=== PATIENT | female | born 1955 | race Caucasian/White ===

== ENCOUNTER 2018-10-28 21:33 | Inpatient (IN) ==
[2018-10-28] MEDS ORDERED: LOPERAMIDE 2 MG CAPSULE PO STA (22:13)
[2018-10-28] MEDS ORDERED: SODIUM CHLORIDE 0.9% 1,000 ML IV STA ×2 (22:13→23:28)
[2018-10-28 22:25] LABS: Basophils # 0.1 10*3/uL (0.0-0.2); Basophils % 0.5 % (0.0-0.8); Hematocrit 42.5 VOL% (35.7-47.0); Hemoglobin 13.8 GM/DL (12.0-16.0); Immature Granulocytes % 0.8 %; Immature Granulocytes Absolute 0.09 #; Lymphocytes % 8.7 % (21.3-54.2); Mean Corpuscular HGB Conc 32.5 GM/DL (32-36); Mean Corpuscular Volume 86.9 FL (87-102); Mean Platelet Volume 10.8 FL (9.6-12.0); Platelet Count 195 T/CUMM (130-400); Red Blood Count 4.89 MC/CUMM (3.8-5.5); Red Cell Distribution Width 14.4 % (9.3-17.3)
[2018-10-28 22:48] LABS: Albumin 3.2 G/DL (3.4-5.0); Bilirubin,Total 0.4 MG/DL (0.2-1.0); Calcium 7.9 MG/DL (8.5-10.1); Total Protein 6.7 G/DL (6.4-8.3)
[2018-10-28] MEDS ORDERED: ONDANSETRON 4 MG/2 ML VIAL IV STA (23:30)
[2018-10-29] MEDS ORDERED: ONDANSETRON 4 MG/2 ML VIAL IV PRN (06:20)
[2018-10-29] MEDS ORDERED: POTASSIUM CHLORIDE RIDER 10 MEQ in PREMIX 1 EACH IV PRN (06:20)
[2018-10-29] MEDS ORDERED: MAGNESIUM SULF RIDER 4 GM in PREMIX 1 EACH IV PRN (06:20)
[2018-10-29] MEDS ORDERED: PROMETHAZINE 25 MG/1 ML VIAL IM PRN (06:20)
[2018-10-29] MEDS ORDERED: NITROGLYCERIN SL 0.4 MG TABLET SL PRN (06:20)
[2018-10-29] MEDS ORDERED: MAGNESIUM SULF RIDER 2 GM in PREMIX 1 EACH IV PRN (06:20)
[2018-10-29] MEDS: SODIUM CHLORIDE 0.9% 1,000 ML IV SCH (08:04)
[2018-10-29] MEDS: ACETAMINOPHEN 325 MG TABLET PO PRN ×3 (08:05→20:05)
[2018-10-29] MEDS ORDERED: METOPROLOL SUCCINATE XL 50 MG TABLET PO SCH (09:00)
[2018-10-29] MEDS ORDERED: amLODIPine 5 MG TABLET PO SCH (09:00)
[2018-10-29] MEDS ORDERED: ENALAPRIL 20 MG TABLET PO SCH (09:00)
[2018-10-29] MEDS: ENOXAPARIN 40 MG/0.4 ML SYRINGE SUBCUT SCH (09:19)
[2018-10-29] MEDS: PANTOPRAZOLE 40 MG TABLET PO SCH (09:19)
[2018-10-29] MEDS: SIMVASTATIN 20 MG TABLET PO SCH (09:19)
[2018-10-29] MEDS ORDERED: MAGNESIUM SULF RIDER 2 GM in PREMIX 1 EACH IV ONE ×2 (09:26→14:32)
[2018-10-29] MEDS ORDERED: POTASSIUM CHLORIDE 20 MEQ TABLET PO ONE (09:26)
[2018-10-29] MEDS ORDERED: POTASSIUM CHLORIDE 20 MEQ/15 ML UDCUP PO ONE (14:32)
[2018-10-29] MEDS ORDERED: SODIUM CHLORIDE 0.9% 500 ML IV ONE ×2 (15:42→15:54)
[2018-10-29] MEDS ORDERED: NOREPINEPHRINE 8 MG in SODIUM CHLORIDE 0.9% 242 ML IV PRN (17:55)
[2018-10-29] MEDS ORDERED: VANCOMYCIN INJ 1,000 MG in SODIUM CHLORIDE 0.9% 250 ML IV ONE (17:57)
[2018-10-29] MEDS: MEROPENEM 500 MG in SODIUM CHLORIDE 0.9% 100 ML IV SCH (20:10)
[2018-10-29 21:56] LABS: Apearance,Urine CLEAR (Clear); Bilirubin,Urine Negative (Negative); Blood, Urine Small mg/dL (Negative); Glucose,Urine (UA) Negative (Negative); Hyaline Casts,Urine 26 /LPF (0-3); Ketones,Urine Negative (Negative); Mucus,Urine Occasional /LPF (Occasional); Nitrite,Urine Negative (Negative); Protein,Urine Negative; RBC,Urine 1 /HPF (0-4); Squamous Epithelial Cell,Urine Occasional /HPF (0-10); Urine Color Yellow (Yellow); Urine Urobilinogen < 2.0 EU/DL (0.2-1.0); WBC,Urine 1 /HPF (0-6)
[2018-10-30] MEDS: SODIUM CHLORIDE 0.9% 1,000 ML IV SCH ×4 (00:53→21:28)
[2018-10-30] MEDS: ACETAMINOPHEN 325 MG TABLET PO PRN ×3 (02:03→21:16)
[2018-10-30 04:10] LABS: Basophils % 0.5 % (0.0-0.8); Eosinophils # 0.1 10*3/uL (0.0-0.87); Eosinophils % 0.8 % (0.00-10.9); Hematocrit 38.5 VOL% (35.7-47.0); Hemoglobin 12.4 GM/DL (12.0-16.0); Immature Granulocytes % 0.5 %; Immature Granulocytes Absolute 0.03 #; Lymphocytes % 16.6 % (21.3-54.2); Mean Corpuscular HGB Conc 32.2 GM/DL (32-36); Mean Corpuscular Volume 85.9 FL (87-102); Mean Platelet Volume 10.8 FL (9.6-12.0); Neutrophils % 70.6 % (38.7-73.9); Platelet Count 163 T/CUMM (130-400); Red Blood Count 4.48 MC/CUMM (3.8-5.5); Red Cell Distribution Width 14.6 % (9.3-17.3); White Blood Count 6.2 T/CUMM (4-12)
[2018-10-30 04:31] LABS: Osmolality,Calculated 276.5 MOS/KG (273-304)
[2018-10-30] MEDS: POTASSIUM CHLORIDE 20 MEQ TABLET PO PRN ×5 (05:08→21:14)
[2018-10-30] MEDS: PANTOPRAZOLE 40 MG TABLET PO SCH (08:57)
[2018-10-30] MEDS: SIMVASTATIN 20 MG TABLET PO SCH (08:57)
[2018-10-30] MEDS: ENOXAPARIN 40 MG/0.4 ML SYRINGE SUBCUT SCH (08:58)
[2018-10-30] MEDS: MEROPENEM 500 MG in SODIUM CHLORIDE 0.9% 100 ML IV SCH ×2 (08:58→21:13)
[2018-10-30] MEDS ORDERED: POTASSIUM CHLORIDE 10 MEQ TABLET PO ONE (13:58)
[2018-10-30] MEDS: FUROSEMIDE 40 MG/4 ML VIAL IV SCH (15:41)
[2018-10-31] MEDS: ACETAMINOPHEN 325 MG TABLET PO PRN (03:21)
[2018-10-31 05:52] LABS: Basophils % 0.7 % (0.0-0.8); Eosinophils # 0.2 10*3/uL (0.0-0.87); Eosinophils % 5.1 % (0.00-10.9); Hematocrit 38.3 VOL% (35.7-47.0); Hemoglobin 12.3 GM/DL (12.0-16.0); Immature Granulocytes % 0.9 %; Immature Granulocytes Absolute 0.04 #; Lymphocytes # 1.2 10*3/uL (1.4-4.0); Lymphocytes % 27.3 % (21.3-54.2); Mean Corpuscular HGB Conc 32.1 GM/DL (32-36); Mean Platelet Volume 10.8 FL (9.6-12.0); Platelet Count 176 T/CUMM (130-400); Red Cell Distribution Width 14.4 % (9.3-17.3); White Blood Count 4.5 T/CUMM (4-12)
[2018-10-31 06:04] LABS: Calcium 8.2 MG/DL (8.5-10.1)
[2018-10-31 06:05] LABS: Osmolality,Calculated 280.1 MOS/KG (273-304)
[2018-10-31] MEDS: MEROPENEM 500 MG in SODIUM CHLORIDE 0.9% 100 ML IV SCH (09:26)
[2018-10-31] MEDS: PANTOPRAZOLE 40 MG TABLET PO SCH (09:27)
[2018-10-31] MEDS: POTASSIUM CHLORIDE 20 MEQ/15 ML UDCUP PO SCH (09:27)
[2018-10-31] MEDS: FUROSEMIDE 40 MG/4 ML VIAL IV SCH (09:27)
[2018-10-31] MEDS: SODIUM CHLORIDE 0.9% 1,000 ML IV SCH ×2 (09:27→22:15)
[2018-10-31] MEDS: SIMVASTATIN 20 MG TABLET PO SCH (09:27)
[2018-10-31] MEDS: ENOXAPARIN 40 MG/0.4 ML SYRINGE SUBCUT SCH (09:27)
[2018-10-31] MEDS: CIPROFLOXACIN INJ 400 MG in PREMIX 1 EACH IV SCH (12:03)
[2018-11-01] MEDS: CIPROFLOXACIN INJ 400 MG in PREMIX 1 EACH IV SCH ×3 (00:11→23:50)
[2018-11-01] MEDS: ACETAMINOPHEN 325 MG TABLET PO PRN (00:11)
[2018-11-01 05:48] LABS: Basophils % 0.7 % (0.0-0.8); Eosinophils # 0.4 10*3/uL (0.0-0.87); Eosinophils % 8.4 % (0.00-10.9); Hematocrit 37.7 VOL% (35.7-47.0); Hemoglobin 12.3 GM/DL (12.0-16.0); Immature Granulocytes % 0.7 %; Immature Granulocytes Absolute 0.03 #; Lymphocytes # 1.5 10*3/uL (1.4-4.0); Lymphocytes % 34.4 % (21.3-54.2); Mean Corpuscular HGB Conc 32.6 GM/DL (32-36); Mean Corpuscular Volume 85.1 FL (87-102); Mean Platelet Volume 10.5 FL (9.6-12.0); Monocytes % 10.6 % (1.7-12.7); Neutrophils % 45.2 % (38.7-73.9); Platelet Count 196 T/CUMM (130-400); Red Blood Count 4.43 MC/CUMM (3.8-5.5); Red Cell Distribution Width 14.4 % (9.3-17.3); White Blood Count 4.4 T/CUMM (4-12)
[2018-11-01 06:06] LABS: Calcium 8.5 MG/DL (8.5-10.1); Osmolality,Calculated 284.7 MOS/KG (273-304)
[2018-11-01] MEDS ORDERED: FUROSEMIDE 40 MG/4 ML VIAL IV SCH (09:00)
[2018-11-01] MEDS: ENOXAPARIN 40 MG/0.4 ML SYRINGE SUBCUT SCH (09:06)
[2018-11-01] MEDS: PANTOPRAZOLE 40 MG TABLET PO SCH (09:07)
[2018-11-01] MEDS: POTASSIUM CHLORIDE 20 MEQ TABLET PO PRN (09:08)
[2018-11-01] MEDS: SIMVASTATIN 20 MG TABLET PO SCH (09:09)
[2018-11-01] MEDS: POTASSIUM CHLORIDE 20 MEQ/15 ML UDCUP PER TUBE PRN ×4 (09:19→23:47)
[2018-11-01] MEDS: POTASSIUM CHLORIDE 20 MEQ/15 ML UDCUP PO SCH (09:19)
[2018-11-01] MEDS ORDERED: POTASSIUM CHLORIDE 20 MEQ TABLET PO ONE (11:31)
[2018-11-01] MEDS ORDERED: MAGNESIUM SULF RIDER 2 GM in PREMIX 1 EACH IV ONE (11:32)
[2018-11-01] MEDS: SODIUM CHLORIDE 0.9% 1,000 ML IV SCH ×2 (15:20→23:48)
[2018-11-01] MEDS: MAGNESIUM CHLORIDE 64 MG TABLET PO SCH (20:53)
[2018-11-02] MEDS: POTASSIUM CHLORIDE 20 MEQ/15 ML UDCUP PER TUBE PRN (02:13)
[2018-11-02] MEDS: ACETAMINOPHEN 325 MG TABLET PO PRN ×2 (03:24→15:16)
[2018-11-02 05:29] LABS: Basophils % 0.8 % (0.0-0.8); Eosinophils # 0.3 10*3/uL (0.0-0.87); Eosinophils % 6.4 % (0.00-10.9); Hematocrit 38.1 VOL% (35.7-47.0); Hemoglobin 12.3 GM/DL (12.0-16.0); Immature Granulocytes % 1.7 %; Immature Granulocytes Absolute 0.09 #; Lymphocytes # 1.8 10*3/uL (1.4-4.0); Lymphocytes % 33.1 % (21.3-54.2); Mean Corpuscular HGB Conc 32.3 GM/DL (32-36); Mean Corpuscular Volume 85.2 FL (87-102); Mean Platelet Volume 10.5 FL (9.6-12.0); Monocytes % 12.1 % (1.7-12.7); Neutrophils % 45.9 % (38.7-73.9); Platelet Count 226 T/CUMM (130-400); Red Blood Count 4.47 MC/CUMM (3.8-5.5); Red Cell Distribution Width 14.4 % (9.3-17.3); White Blood Count 5.3 T/CUMM (4-12)
[2018-11-02 05:50] LABS: Calcium 8.4 MG/DL (8.5-10.1); Osmolality,Calculated 285.7 MOS/KG (273-304)
[2018-11-02] MEDS: CIPROFLOXACIN 500 MG TABLET PO SCH ×2 (08:39→21:43)
[2018-11-02] MEDS: MAGNESIUM CHLORIDE 64 MG TABLET PO SCH ×3 (08:39→21:43)
[2018-11-02] MEDS: amLODIPine 5 MG TABLET PO SCH (08:39)
[2018-11-02] MEDS: ENOXAPARIN 40 MG/0.4 ML SYRINGE SUBCUT SCH (08:40)
[2018-11-02] MEDS: PANTOPRAZOLE 40 MG TABLET PO SCH (08:40)
[2018-11-02] MEDS: POTASSIUM CHLORIDE 20 MEQ/15 ML UDCUP PO SCH (08:40)
[2018-11-02] MEDS: SIMVASTATIN 20 MG TABLET PO SCH (08:40)
[2018-11-02] MEDS: ENALAPRIL 20 MG TABLET PO SCH (08:40)
[2018-11-02] MEDS: METOPROLOL SUCCINATE XL 50 MG TABLET PO SCH (08:40)
[2018-11-03] MEDS: POTASSIUM CHLORIDE 20 MEQ/15 ML UDCUP PO SCH (09:09)
[2018-11-03] MEDS: ENOXAPARIN 40 MG/0.4 ML SYRINGE SUBCUT SCH (09:10)
[2018-11-03] MEDS: MAGNESIUM CHLORIDE 64 MG TABLET PO SCH (09:10)
[2018-11-03] MEDS: METOPROLOL SUCCINATE XL 50 MG TABLET PO SCH (09:10)
[2018-11-03] MEDS: SIMVASTATIN 20 MG TABLET PO SCH (09:10)
[2018-11-03] MEDS: CIPROFLOXACIN 500 MG TABLET PO SCH (09:10)
[2018-11-03] MEDS: PANTOPRAZOLE 40 MG TABLET PO SCH (09:10)
[2018-11-03] MEDS: ENALAPRIL 20 MG TABLET PO SCH (09:17)
[2018-11-03] MEDS: amLODIPine 5 MG TABLET PO SCH (09:47)
[2018-11-03 18:09] VITALS: BP 139/71
== END 2018-11-03 12:30 | disposition home or self-care (01) | DRG 372 ==
LOC: EDUNIT# → EDBD → N.EDINP 21:33 → N.ED 21:33 → N.TELEN 10-29 02:06 → N.CC 10-29 18:15 → SUATTDRO 10-30 13:16 → N.5E 10-31 14:27
PROVIDERS: ADMIT Internal Medicine; ATTEND Internal Medicine Geriatric Medicine